=== PATIENT | female | born 1945 ===

== ENCOUNTER 2017-04-28 12:11 | Emergency (ER) | payer MEDICARE, BC ==
[2017-04-28 12:51] VITALS: BP 131/78
--- NOTE | 2017-04-28 13:28 | RAD ---
HISTORY: Cough COMPARISONS: December 21, 2015 VIEWS: 4: Frontal dual-energy and lateral views of the chest. FINDINGS: CARDIOMEDIASTINAL SILHOUETTE: The cardiomediastinal silhouette is normal. OWEN: The owen are normal. PLEURA: The costophrenic angles are sharp. No pleural abnormalities are noted. LUNG PARENCHYMA: There is patchy alveolar opacification of the right perihilar region. ABDOMEN: The upper abdomen is clear. There is no subphrenic gas. BONES AND SOFT TISSUES: There is a scoliotic curvature of the spine. Degenerative changes are noted. OTHER: None. IMPRESSION: PATCHY PERIHILAR AIRSPACE DISEASE ON THE RIGHT. RECOMMEND FOLLOW-UP UNTIL RESOLUTION TO EXCLUDE UNDERLYING PULMONARY PARENCHYMAL PATHOLOGY.
--- NOTE | 2017-04-28 13:35 | UC ---
Respiratory Complaint HPI - HPI Summary HPI Summary: COUGH X 3 DAYS COUGH IS DRY , HARSH + NASAL CONGESTION , PND, NO FEVER, NO CHILLS - History of Current Complaint Chief Complaint: UCGeneralIllness Stated Complaint: COUGH,CONGESTION Time Seen by Provider: 04/28/17 13:00 Hx Obtained From: Patient Onset/Duration: Gradual Onset, Lasting Days - 3, Still Present Timing: Constant Severity Initially: Moderate Severity Currently: Moderate Pain Intensity: 0 Character: Cough: Nonproductive Aggravating Factors: Exertion, Deep Breaths Alleviating Factors: Nothing Associated Signs And Symptoms: Positive: URI, Nasal Congestion. Negative: Dyspnea, Fever, Chills, Pleuritic Chest Pain, Wheezing, Hemoptysis, Dizziness, Calf Pain, Calf Swelling, Edema, Hoarseness - Allergies/Home Medications Allergies/Adverse Reactions: Allergies Allergy/AdvReac Type Severity Reaction Status Date / Time No Known Allergies Allergy Verified 12/31/15 06:34 Home Medications: Home Medications D-Methorphan/PE/Acetaminophen [Day Time Cold-Flu Liquid] 04/28/17 [History] PMH/Surg Hx/FS Hx/Imm Hx - Additional Past Medical History Additional PMH: ARTHITIS SCHOLIOSIS Respiratory History: Asthma - Surgical History Surgical History: Yes Surgery Procedure, Year, and Place: BUNIONECTOMY, RIGHT, 2010, [facility] [place]. APPENDECTOMY, [address], [facility]. HYSTERECTOMY, 1998, [facility]. RIGHT KNEE REPLACMENT. HIP REPLACEMENT - Family History Known Family History: Negative: Diabetes - Social History Alcohol Use: Occasionally Alcohol Amount: 3 DRINKS A WEEK Substance Use Type: None Smoking Status (MU): Never Smoked Tobacco Amount Used/How Often: PACK A DAY Have You Smoked in the Last Year: No When Did the Patient Quit Smoking/Using Tobacco: 38 YEARS AGO - Immunization History Most Recent Influenza Vaccination: October 2014 Most Recent Tetanus Shot: unknown Most Recent Pneumonia Vaccination: 2016 Review of Systems Constitutional: Negative Skin: Negative Eyes: Negative ENT: Nasal Discharge Respiratory: Cough Cardiovascular: Negative Gastrointestinal: Negative Is Patient Immunocompromised?: No All Other Systems Reviewed And Are Negative: Yes Physical Exam Triage Information Reviewed: Yes Appearance: Well-Appearing, No Pain Distress, Well-Nourished Vital Signs: Initial Vital Signs Temp 99.2 F 04/28/17 12:42 Pulse 73 04/28/17 12:42 Resp 18 04/28/17 12:42 BP 131/78 03/20/18 12:42 Pulse Ox 98 04/28/17 12:42 Vital Signs Reviewed: Yes Eye Exam: Normal Eyes: Positive: Conjunctiva Clear ENT: Positive: Normal ENT inspection, Hearing grossly normal, Pharynx normal, Nasal congestion, TMs normal Neck: Positive: Supple, Nontender, No Lymphadenopathy Respiratory: Positive: Chest non-tender, Lungs clear, Normal breath sounds, No respiratory distress Cardiovascular: Positive: RRR, No Murmur, Pulses Normal Skin Exam: Normal UC Diagnostic Evaluation - Laboratory O2 Sat by Pulse Oximetry: 98 Respiratory Course/Dx - Differential Dx/Diagnosis Provider Diagnoses: BRONCHITIS Discharge - Sign-Out/Discharge Documenting (check all that apply): Discharge - Discharge Plan Condition: Stable Disposition: HOME Prescriptions: Benzonatate CAP* [Tessalon 100 MG CAP*] 100 mg PO TID PRN #15 cap PRN Reason: Cough Patient Education Materials: Acute Bronchitis (ED) Referrals: Alec Michelle DO [Primary Care Provider] - 7 Days - Billing Disposition and Condition Condition: STABLE Disposition: HOME
== END 2017-04-28 13:34 | disposition home or self-care (01) ==
LOC: UCCORT 12:11
DX: J40 Bronchitis, not specified as acute or chronic (principal)
CPT/HCPCS: 71046; 99211; G0463

== ENCOUNTER → 2018-09-20 09:44 | Day surgery (SDC) | payer MEDICARE, BC ==
[~2018-09-20 09:44] MED LIST: Buffered Lidocaine 1% SYRIN* 1 ML/SYRINGE INTRADERM ONE; Dexamethasone IV* 4 MG/ML 1 ML (4 MG) IV SLOW PU ONE; Dexamethasone IV* 4 MG/ML 1 ML (4 MG) ONE; Famotidine IV* 10 MG/ML 2 ML (20 mg) IV ONE; Famotidine IV* 10 MG/ML 2 ML (20 mg) ONE; HYDROcodone/ACETAMIN 5-325 MG* 1 TAB PO PRN; Lactated Ringers 1000 ML Bag* 1,000 ML IV SCH; Lidocaine 2% PF * 5 ML VIAL ONE; Lidocaine 2% PF* 10 ML AMP ONE; Midazolam* 1 MG/ML 2 ML VIAL (2 MG) ONE; Naloxone* 0.4 MG/ML 1 ML VIAL IV PRN; Ondansetron INJ* 2 MG/ML VIAL ONE; PROCHLORPERAZINE INJ 5 MG/ML 2 ML VIAL IV PRN; Propofol* 10 MG/ML 20 ML BTL ONE; ceFAZolin 2 GM in NS PREMIX(*) 2 GM/100 ML BAG IVPB ONE; fentaNYL* 50 MCG/ML 2 ML VIAL (100 MCG VIAL) IV PRN; fentaNYL* 50 MCG/ML 2 ML VIAL (100 MCG VIAL) ONE; oxyCODONE/Acetamin 5/325 MG* TAB PO PRN
[2018-09-20 19:19] VITALS: BP 153/71
--- NOTE | 2018-09-20 21:39 | OP ---
DATE OF OPERATION: 09/20/18 [facility] DATE OF : 43 ATTENDING SURGEON: Ulises Lazaro MD. MIX HOUSE TENDER: Della Flood PA-C. PRE-OP DIAGNOSIS: Arthritic left first metatarsophalangeal joint. POST-OP DIAGNOSIS: Arthritic left first metatarsophalangeal joint. OPERATIVE PROCEDURE: Fusion, left first MTP joint, using Arthrex instrumentation. DESCRIPTION OF PROCEDURE: The patient was taken to the operating room, where ankle Esmarch was applied as well as local anesthetic around the first metatarsal. We made a longitudinal incision over the first MTP joint medial to the EHL tendon. The capsule was then opened medially and laterally to allow full visualization of the joint surfaces. These were prepared for arthrodesis using the ball and cup reamers from the Arth[employer] system, 20 mm wide. We then apposed the two surfaces in the neutral position and pinned this obliquely with the 1.5 mm guide pin. We exchanged this for a 34 mm partially threaded 3.0 cannulated screw in a compression mode. A left medium standard fusion plate was then fashioned to fit the dorsal aspect of the first MTP joint. This was fixed with dorsal to plantar combination of locking and nonlocking screws. X-rays intraoperatively showed satisfactory position and alignment. We irrigated and closed with 3-0 Monocryl; 3-0 nylon and compression dressing applied. [id number]/[facility] #: [id number] [facility]
== END | disposition home or self-care (01) ==
LOC: OR 09:44
PROVIDERS: ATTEND Orthopaedic Surgery
DX: M19.072 Primary osteoarthritis, left ankle and foot (principal); M20.22 Hallux rigidus, left foot
CPT/HCPCS: 76000; C1713; J0690; J1100; J2001; J2250; J2405; J2704; J3010

== ENCOUNTER 2020-11-30 06:05 | Observation (INO) ==
[~2020-11-30 06:05] MED LIST changes: +Buffered Lidocaine 1% SYRIN 1 ml INTRADERM ONE; -Buffered Lidocaine 1% SYRIN* 1 ML/SYRINGE INTRADERM ONE; -Dexamethasone IV* 4 MG/ML 1 ML (4 MG) IV SLOW PU ONE; -Dexamethasone IV* 4 MG/ML 1 ML (4 MG) ONE; -Famotidine IV* 10 MG/ML 2 ML (20 mg) IV ONE; -Famotidine IV* 10 MG/ML 2 ML (20 mg) ONE; -HYDROcodone/ACETAMIN 5-325 MG* 1 TAB PO PRN; -Lactated Ringers 1000 ML Bag* 1,000 ML IV SCH; +Lactated Ringers 1000 ml BAG 1,000 ML IV SCH; -Lidocaine 2% PF * 5 ML VIAL ONE; -Lidocaine 2% PF* 10 ML AMP ONE; -Midazolam* 1 MG/ML 2 ML VIAL (2 MG) ONE; -Naloxone* 0.4 MG/ML 1 ML VIAL IV PRN; -Ondansetron INJ* 2 MG/ML VIAL ONE; -PROCHLORPERAZINE INJ 5 MG/ML 2 ML VIAL IV PRN; -Propofol* 10 MG/ML 20 ML BTL ONE; -ceFAZolin 2 GM in NS PREMIX(*) 2 GM/100 ML BAG IVPB ONE; -fentaNYL* 50 MCG/ML 2 ML VIAL (100 MCG VIAL) IV PRN; -fentaNYL* 50 MCG/ML 2 ML VIAL (100 MCG VIAL) ONE; -oxyCODONE/Acetamin 5/325 MG* TAB PO PRN
[2020-11-30] MEDS ORDERED: ceFAZolin 2 GM in NS PREMIX 2 GM/100 ML BAG IVPB ONE (06:15)
[2020-11-30] MEDS ORDERED: Lidocaine 1% MPF 5 ML VIAL ONE (06:21)
[2020-11-30] MEDS ORDERED: ROPIVACAINE 5 MG/ML 30 ML BTL (0.5%) ONE (06:21)
[2020-11-30] MEDS ORDERED: Phenylephrine IV 10 MG/ML 1 ml VIAL ONE (07:01)
[2020-11-30] MEDS ORDERED: Propofol 10 MG/ML 20 ML BTL ONE (07:01)
[2020-11-30] MEDS ORDERED: Midazolam 5 mg/5 ml VIAL 1 mg/ml 5 ml VIAL (5 mg) ONE (07:42)
[2020-11-30] MEDS ORDERED: oxyCODONE/Acetamin 5/325 mg TAB PO PRN (08:26)
[2020-11-30] MEDS ORDERED: Naloxone 0.4 mg VIAL 0.4 mg/ml 1 ml VIAL IV PRN (08:26)
[2020-11-30] MEDS ORDERED: DiMENhydriNATE IV 50 mg/ml 1 ml VIAL IV PUSH PRN (08:26)
[2020-11-30] MEDS ORDERED: HYDROmorphone 1 MG/1 ML SYRINGE IV PRN (08:26)
[2020-11-30] MEDS ORDERED: Ropivacaine 5 MG/ML 20 ML VIAL 0.5% (100 MG) ONE (08:47)
[2020-11-30] MEDS ORDERED: Acetaminophen IV 1 GM/100ML 100 ML IV ONE (10:04)
[2020-11-30] MEDS ORDERED: diPHENhydraMINE 25 mg TAB PO PRN (10:39)
[2020-11-30] MEDS ORDERED: Morphine 2 MG/ML SYRINGE IV PRN (10:39)
[2020-11-30] MEDS ORDERED: Lactulose 30 ml UDC PO PRN (10:39)
[2020-11-30] MEDS ORDERED: Magnesium Hydroxide LIQ 30 ML UDC PO PRN (10:39)
[2020-11-30] MEDS ORDERED: Ondansetron 4 mg VIAL 2 MG/ML 2 ml VIAL IV PRN (10:39)
[2020-11-30] MEDS ORDERED: diPHENhydraMINE IV 50 MG/ML 1 ml VIAL (BENADRYL) IV PRN (10:39)
[2020-11-30] MEDS ORDERED: Ondansetron ODT 4 mg TAB 4 MG TAB PO PRN (10:39)
[2020-11-30] MEDS ORDERED: DiMENhydriNATE IV 50 mg/ml 1 ml VIAL ONE (11:29)
[2020-11-30] MEDS ORDERED: HYDROmorphone 1 MG/1 ML SYRINGE ONE (11:43)
[2020-11-30] MEDS: Lactated Ringers 1000 ml BAG 1,000 ML IV SCH ×2 (12:38→23:32)
[2020-11-30] MEDS: ceFAZolin 1 GM ADVAN 1 GM in NS 0.9% 50 ML 50 ML IVPB SCH ×2 (15:58→23:30)
[2020-11-30] MEDS: Magnesium Hydroxide LIQ 30 ML UDC PO SCH (21:53)
[2020-12-01 06:46] LABS: Hematocrit 32 % (35-47); Hemoglobin 10.5 g/dL (12.0-16.0); Mean Platelet Volume 7.5 fL (7.4-10.4); Platelet Count 311 10^3/uL (150-450)
[2020-12-01 07:00] LABS: Calcium 8.5 mg/dL (8.6-10.3); Potassium 3.7 mmol/L (3.5-5.0)
[2020-12-01] MEDS: Magnesium Hydroxide LIQ 30 ML UDC PO SCH (08:14)
[2020-12-01] MEDS: ceFAZolin 1 GM ADVAN 1 GM in NS 0.9% 50 ML 50 ML IVPB SCH (08:14)
[2020-12-01] MEDS ORDERED: Vitamin THERAPEUTIC TAB PO SCH (09:00)
[2020-12-01] MEDS ORDERED: CMCS: Solifenacin 5 mg TAB (NF) PO SCH (09:00)
[2020-12-01 11:36] VITALS: BP 125/59
== END 2020-12-01 12:45 | disposition home or self-care (01) ==
LOC: INTOOBSV 06:05 → AA 06:05 → SSU 10:39
PROVIDERS: ADMIT Orthopaedic Surgery Adult Reconstructive Orthopaedic Surgery; ATTEND Orthopaedic Surgery Adult Reconstructive Orthopaedic Surgery